=== PATIENT | male | born 1940 | race Caucasian/White ===

== ENCOUNTER 2023-05-15 09:03 | Emergency (ER) | payer BC, SELFPAY ==
[2023-05-15 09:09] VITALS: BP 139/80
--- NOTE | 2023-05-15 10:33 | ED.GENMED ---
History of Present Illness
General
Chief Complaint: Dizziness
Source: patient
Time Seen by Provider: 05/15/23 10:17
Travel History
Have you had any contact with someone who has COVID-19?: No
Do you have any symptoms of coronavirus? Fever > 100 degrees, chills, cough, shortness of breath, sore throat, loss of taste or smell, muscle aches, or headache?: No
History of Present Illness
History of Present Illness:
This patient is an 82-year-old male presents emergency department with complaint of 'vertigo'. Patient has had symptoms in the past and states this is exactly like prior episodes that were relieved by medications. He first noticed that around 8 PM
while he was working on a computer with his grandchildren. He describes it as a 'spinning' sensation, gradual in onset. He started to feel better, but as he walked down the [place] to go to bed he felt that it was much worse. He feels better if he
lays supine in the midline, and notes symptoms are much worse when he lays on his right side. When he got up this morning out of bed he again felt very vertiginous. He does not have vomiting but does note nausea and sweats. He denies numbness,
tingling, focal weakness, headache, neck pain, recent trauma, change in vision, double vision, change in speech, chest pain, dyspnea, or other complaints.
Past History
Past History
ED Past Medical History: Arrthythmia and HTN
ED Past Surgical History: Orthopedic
Social History
Tobacco: Non-smoker
Alcohol: None
Drug: None
Living: alone
Family History
Family History: Negative Early CAD
Phy Exam
Physical Exam
Physical Exam:
GENERAL: Alert , in no apparent distress
EYE: pupils equal and reactive, EOMI, no photophobia, fatigable left lateral nystagmus
NECK: Supple, no significant adenopathy.
ENT: o/p clr, mmm, TMs clear bilaterally
CARDIAC: Regular rate and rhythm .
LUNGS: Clear breath sounds bilaterally, no acute respiratory distress, no wheezes/rales/rhonchi
ABDOMEN: Soft, without focal tenderness, no r/g, no cvat
NEUROLOGICAL: Alert and oriented, no focal neuro deficits, [id number] normal, motor 5 out of 5, sensory intact, cranial nerves II through XII intact
SKIN: Warm and dry, skin intact.
MUSCULOSKELETAL: No edema, well perfused.
PSYCH: Normal and appropriate interaction.
Course
Orders/Labs/Results
Orders:
Orders
05/15/23 09:14
Electrocardiogram (*1) Urgent
Reason for Study: Vertigo / Dizzy
EKG- Treatment ONCE
05/15/23 10:32
CT Head W/o Iv Contrast Urgent
Comment:
Reason For Exam: VERTIGO
Cardiac Monitoring- Treatment ONCE
Meclizine [Antivert] 25 mg PO NOW STA
05/15/23 10:43
Complete Blood Count/No Diff Urgent
Comprehensive Metabolic Panel Urgent
Abnormal Lab Results
05/15/23
10:43
RBC 3.99 L 10^6/uL
(4.70-6.10)
Hgb 12.1 L g/dL
(13.0-18.0)
Hct 34.9 L %
(39.0-52.0)
Plt Count 123 L 10^3/uL
(130-400)
MPV 12.3 H fL
(7.4-10.4)
Sodium 131 L mmol/L
(135-145)
BUN 23 H mg/dl
(9-20)
Glucose 113 H mg/dl
(70-99)
05/15/23 10:43
05/15/23 10:43
Vital Signs
Initial and Last Documented VS:
Initial Vital Signs
Temp Pulse Resp BP Pulse Ox
98.9 F 61 18 139/80 97
05/15/23 09:09 05/15/23 09:09 05/15/23 09:09 05/15/23 09:09 05/15/23 09:09
Last Documented Vital Signs
Temp Pulse Resp BP Pulse Ox
98.9 F 54 9 139/80 97
05/15/23 09:09 05/15/23 10:45 05/15/23 10:45 05/15/23 09:09 05/15/23 09:09
*Critical Care Note
Total Time (30-74mins, 75-104mins- exclusive of procedures): Not Applicable
Update Note
Update Note:
Patient presents to the Emergency Department with dizziness
Number and Complexity of Problems Addressed at the Encounter
� Chronic conditions affecting care:
� Acute Exacerbation and/or Progression of Chronic Illness:
� Differential Diagnosis includes: But not limited to benign positional vertigo, labyrinthitis, posterior circulation abnormality, etc.
Amount and/or Complexity of Data to be Reviewed and Analyzed
� I performed an independent evaluation of and my interpretation is:
EKG: Read by me, sinus bradycardia, no acute ischemia
CT: Read by radiology NAD
Xrays:
Laboratory Studies: Generally unremarkable
Other:
� Review of other/old records reveals:
� Clinical information was obtained by an independent historian:
� Prescriptions/Medications Considered but not given:
� Further testing considered but not performed:
Risk of Complications and/or Morbidity or Mortality of Patient Management
� Social determinants of health affecting care:
� Discussion with other providers (PCP, Hospitalists, Consultants, etc):
� Escalation of care including admission/observation vs risk of discharge considered: 12:14 PM patient got up and out of bed, walked around room with ED states he is almost completely asymptomatic denies other associated
symptoms. He is able to dress himself as usual and is eager to go home. This is a very similar presentation to his prior episodes of vertigo. Long discussion with patient regarding distinction between central and peripheral vertigo. He does not
have any 'red flag' findings on exam to suggest central vertigo, but aware of importance of follow-up reasons to return to the ER. No ataxia noted.
ED Attending Note
-
Portions of this chart may have been created with voice recognition software.� Occasional wrong word or��sound alike� substitutions may have occurred due to the inherent limitations of voice recognition software.
Discharge Plan
Departure
Patient Disposition: Home (Routine Discharge)
Date of Disposition: 05/15/23
Time of Disposition: 12:11
Patient with high blood pressure during this ER visit?: Yes
Condition: Good
Discharge Problem:
Vertigo
Instructions: Vertigo (a Type of Dizziness) (DC), BLOOD PRESSURE
Prescriptions:
New
meclizine [Antivert] 25 mg tablet,chewable
25 mg PO TID PRN (Reason: dizziness) Qty: 14 0RF
No Action
fish oil-dha-epa 1 EACH capsule
2 ea PO DAILY
cr-[id number] [Centrum Silver Ultra Men's] 1 EACH tablet
1 ea PO Daily
atenolol 25 MG tablet
25 mg PO Daily
aspirin [Aspir-Low] 81 MG tablet,delayed release (DR/EC)
81 mg PO Daily
losartan 25 MG tablet
50 mg PO Daily
Referrals:
Pedro Luis Rossi MD [Active] - Next open appointment
Leonor Solo DO [Family Provider] -
Activity Restrictions/Additional Instructions:
IF YOU DEVELOP RECURRENT/WORSENING/NEW DIZZINESS, CHEST PAIN, TROUBLE BREATHING, FEVER, VOMITING, NUMBNESS, WEAKNESS, DOUBLE VISION, CHANGE IN SPEECH, OR OTHER WORRISOME SIGNS, GO TO THE ER IMMEDIATELY!
Interventions
Interventions:
ED- Cardiac Assessment Last Done: 05/15/23 10:05
[2023-05-15] MEDS: ANTIVERT 25 MG PO (10:46)
[2023-05-15 11:02] LABS: Hematocrit 34.9 % (39.0-52.0); Hemoglobin 12.1 g/dL (13.0-18.0); Mean Corp Hgb Conc. 34.7 g/dL (33.0-37.0); Mean Corpuscular Hgb 30.3 pg (27.0-31.0); Mean Corpuscular Volume 87.5 fL (80.0-94.0); Mean Platelet Volume 12.3 fL (7.4-10.4); Platelet Count 123 10^3/uL (130-400); Red Blood Cell Count 3.99 10^6/uL (4.70-6.10); Red Cell Dist. Width 12.2 % (11.5-14.5); White Blood Cell Count 8.7 10^3/uL (4.8-10.8)
[2023-05-15 11:13] LABS: ALT (SGPT) 23 U/L (0-50); AST (SGOT) 27 U/L (17-59); Albumin 4.2 g/dl (3.5-5.0); Alkaline Phosphatase 54 U/L (38-126); Blood Urea Nitrogen 23 mg/dl (9-20); Calcium 9.4 mg/dl (8.4-10.2); Carbon Dioxide 27 mmol/L (22-30); Chloride 100 mmol/L (98-107); Glucose 113 mg/dl (70-99); Potassium 4.3 mmol/L (3.5-5.1); Sodium 131 mmol/L (135-145); Total Bilirubin 0.7 mg/dl (0.2-1.3); Total Protein 6.7 g/dl (6.3-8.2); eGFR > 60.00
[2023-05-15 12:18] VITALS: BP 135/88
[2023-05-15 12:22] VITALS: BP 134/88
== END 2023-05-15 12:23 | disposition home or self-care (01) ==
LOC: EMR 09:03
PROVIDERS: EMERGENCY PHYSICIAN Emergency Medicine; FAMILY PHYSICIAN Student in an Organized Health Care Education/Training Program
DX: R42 Dizziness and giddiness (principal); I10 Essential (primary) hypertension
CPT/HCPCS: 99285; 70450; 80053; 85027; 93005

== ENCOUNTER 2024-07-10 06:01 | Day surgery (SDC) | payer BC, SELFPAY ==
[2024-07-01 14:06] VITALS: BMI 27.2
[2024-07-10] VITALS (12 sets, daily range): BP systolic 102–122; BP diastolic 60–76; BMI 27.2
[2024-07-10] MEDS: TYLENOL 1000 MG PO (06:39)
[2024-07-10] MEDS: NORMOSOL-R/PLASMALYTE-A 1000 IV (06:39)
--- NOTE | 2024-07-10 07:06 | W.SUR.PREOP ---
Pre-Operative Surgical Note
-
I have examined this patient prior to the performance of the scheduled procedure.
The patient's condition is unchanged from the time of the current History and
Physical and the patient is able to undergo the scheduled procedure.
--- NOTE | 2024-07-10 08:46 | W.IMMPOSTOP ---
Surgical Immed Post Op Note
-
Primary Surgeon: Franklin Acuna MD
Assisting Surgeon: None
Pre-op Diagnosis: Right inguinal hernia
Post-op Diagnosis: Same
Procedure Performed: Robotic right inguinal hernia repair with mesh (VIV approach)
Anesthesia Type: General
Specimen / Cultures: None
Estimated Blood Loss: 3 cc
Complications: None
Operative Findings: Moderate-sized pantaloon (direct and indirect) hernia defects along with a small femoral component as well. No cord lipoma identified. After achieving the critical view of the n.p.o. the space was reinforced with an extra-large
Bard mid weight 3D max uncoated polypropylene mesh.
--- NOTE | 2024-07-10 08:48 | OR.RPT ---
Operative Report
Operative Report
Patient Name: Fabio Lopez
: 1940
Date of Operation: 07/10/2024
Preoperative Diagnosis: Reducible Inguinal hernia, right
Postoperative Diagnosis: Same
Procedure(s):
Robotic right inguinal Hernia Repair with mesh, (VIV approach)
Surgeon(s):
Dr. Acuna
Results Engineer(s):
JACKY Ash
Anesthesia: General
Estimated Blood Loss: 3 cc
Urine Output: None
Drains/Lines/Implants: XLarge 3D Max Bard mid weight uncoated polypropylene mesh
Specimens: None
Indication for surgery: The patient has a history of groin pain and noted on exam to have a right inguinal Hernia(s). Following review of therapeutic options they have elected to undergo a minimally invasive repair.
Operative Findings: Moderate-sized pantaloon (direct and indirect) hernia defects along with a small femoral component as well. No cord lipoma identified. After achieving the critical view of the n.p.o. the space was reinforced with an extra-large
Bard mid weight 3D max uncoated polypropylene mesh.
Details of the operation:
The patient was brought to the Operating Room and placed in the supine position with the arms tucked. IV antibiotics were infused and Venodyne stockings placed. Following uneventful induction of general endotracheal anesthesia, an orogastric tube
was placed. The abdomen was prepped and draped in the usual sterile fashion. The abdomen was entered using a Veress technique which required 1 pass, pneumoperitoneum to 15 mmHg was obtained without difficulty. An 8mm trochar was passed through the
abdominal wall roughly 20 cm cephalad to the inguinal canal. We then confirmed that no inadvertent injury was made while passing the trocar or Veress needle. We then placed two additional 8 mm ports in the left upper and right upper quadrants. We
then docked the robot with a Prograsper in the left hand port and monopolar scissors in the right. A pantaloon hernia defect was immediately noted on the right side. There was a small indentation in the left peritoneum in the indirect space
however no significant defect was noted. We then began by creating a flap on the right side at the level of the ASIS laterally working our way medially to the medial umbilical fold. Staying onto the peritoneum we were able to circumferentially
dissect around the hernia sac and and peel it off of the underlying spermatic cord and testicular vessels, taking care to preserve them. Medially we identified the midline pubis as well as Kyle's ligament and ensured to dissect 2 cm below the
pubic rim over the bladder. After exposure of the entire myopectineal orifice we identified and reduced: A medium sized indirect inguinal hernia, a direct inguinal hernia which was imbricated closed using a 2-0 V-Loc suture anchored at Kyle's. A
small femoral hernia, and no cord lipoma.
We then fixated a large 3D max mesh with a 2-0 Vicryl stitch at coopers medially and superior laterally. The flap was then closed with a running 2-0 barbed monocryl suture ensuring that the tail was cut flush with the medial fat pad so that no
barbs were exposed. During the closure of the flap a metal suction cannula was inserted and 10 cc of quarter percent Marcaine was instilled. The area in the flap cavity was then evacuated of air confirming that the mesh was flush and there were no
folds. . All needles and instruments were then removed and the robot was undocked. The abdomen was then desufflated, and pneumoperitoneum evacuated. All skin sites were then closed with 4-0 Monocryl followed by Dermabond. Counts were correct and
overall, the patient tolerated the procedure well and was taken to the Recovery Room postoperatively in stable condition.
I was the attending physician and performed the procedure with assistance of the PA above. The assistance of JACKY Ash was required due to the complexity of the procedure. During the procedure Maryam assisted with port placement, instrument
and needle exchanges, and closure of the wound. I was present for all portions of the case, excluding skin closure.
Franklin Acuna MD
== END 2024-07-10 12:25 | disposition home or self-care (01) ==
LOC: SDS 06:01
PROVIDERS: ATTENDING PHYSICIAN Surgery; FAMILY PHYSICIAN Family Medicine
DX: K40.90 Unilateral inguinal hernia, without obstruction or gangrene, not specified as recurrent (principal)
CPT/HCPCS: 49650; 36415; 93005; C1781